=== PATIENT | male | born 1980 | race Two or more races ===

== ENCOUNTER 2020-06-23 21:47 | Inpatient (IN) | payer SELFPAY ==
[~2020-06-23] VITALS: Ht 167.6 cm; Wt 80.6 kg
[2020-06-23] MEDS ORDERED: CEFTRIAXONE PMX 1GM/50ML 50 ML ONE ×2 (22:46→23:57)
[2020-06-23] MEDS ORDERED: DOXYCYCLINE 100MG TABLET ONE (22:46)
[2020-06-23] MEDS ORDERED: ACETAMINOPHEN 500 MG TABLET ONE (22:46)
[2020-06-23 22:49] LABS: BASOPHILS % (AUTO) 0 % (0-1); EOSINOPHILS % (AUTO) 0 % (1-7); LYMPHOCYTES # (AUTO) 0.52 x10^3/uL (1-3.4); LYMPHOCYTES % (AUTO) 7 % (22-44); MD NO; MEAN CORPUSCULAR HEMOGLOBIN 30.4 pg (27.5-34.5); MEAN CORPUSCULAR HGB CONC 33.7 g/dL (33.2-36.2); MEAN CORPUSCULAR VOLUME 90.4 fL (81-97); MEAN PLATELET VOLUME 8.2 fL (7.4-10.4); MONOCYTES # (AUTO) 0.53 x10^3/uL (0.2-0.8); MONOCYTES % (AUTO) 7 % (2-9); NEUTROPHILS # (AUTO) 6.62 x10^3/uL (1.8-6.8); NEUTROPHILS % (AUTO) 86 % (42-75); PLATELET COUNT 202 x10^3/uL (130-400); RED CELL DISTRIBUTION WIDTH 12.5 % (9.4-14.8)
[2020-06-23 22:59] LABS: ALANINE AMINOTRANSFERASE 60 U/L (12-78); ALBUMIN 2.8 g/dL (3.4-5.0); ANION GAP 7 mmol/L (5-15); CHLORIDE 102 mmol/L (98-107); CREATININE 0.88 mg/dL (0.7-1.3)
[2020-06-23] MEDS ORDERED: CEFTRIAXONE PMX 1GM/50ML 50 ML IV ONE ×2 (23:00→23:45)
[2020-06-23] MEDS ORDERED: ACETAMINOPHEN 325 MG TABLET PO ONE (23:00)
[2020-06-23] MEDS ORDERED: ACETAMINOPHEN 500 MG TABLET PO ONE (23:00)
[2020-06-23] MEDS ORDERED: DOXYCYCLINE 100MG TABLET PO ONE (23:00)
[2020-06-23 23:06] LABS: D-DIMER (DIC) 0.54 ug/mlFEU (0.00-0.52); PROTIME 9.6 Seconds (9.6-11.5)
[2020-06-23 23:06] LABS: ALKALINE PHOSPHATASE 84 U/L (45-117); BILIRUBIN,TOTAL 0.5 mg/dL (0.2-1.0); TOTAL PROTEIN 7.6 g/dL (6.4-8.2)
[2020-06-23] MEDS ORDERED: methylPREDNISolone SOD SUCC 125 MG/2 ML ONE (23:16)
[2020-06-23] MEDS ORDERED: MELATONIN 5 MG TABLET PO PRN (23:30)
[2020-06-23] MEDS ORDERED: hydrALAzine 20 MG/ML, 1ML IVPush PRN (23:30)
[2020-06-23] MEDS ORDERED: ACETAMINOPHEN 325 MG TABLET PO PRN (23:30)
[2020-06-23] MEDS ORDERED: ONDANSETRON 2MG/ML, 2ML IVPush PRN (23:30)
[2020-06-23] MEDS ORDERED: methylPREDNISolone SOD SUCC 125 MG/2 ML IVPush ONE (23:30)
[2020-06-23] MEDS ORDERED: DOCUSATE 100 MG CAPSULE PO PRN (23:30)
[2020-06-23] MEDS: CEFTRIAXONE PMX 2GM/50ML 50 ML IV SCH (23:30)
[2020-06-23] MEDS ORDERED: BISACODYL 10 MG SUPP PR PRN (23:30)
[2020-06-23] MEDS ORDERED: POLYETHYLENE GLYCOL 17 GM PACKET PO PRN (23:30)
[2020-06-23] MEDS ORDERED: OXYcodone IR 5MG TABLET PO PRN (23:30)
[2020-06-23] MEDS ORDERED: PROMETHAZINE 25 MG/ML, 1ML IM PRN (23:30)
[2020-06-23] MEDS ORDERED: ENOXAPARIN 40 MG/0.4 ML SQ SCH (23:30)
[2020-06-23] MEDS ORDERED: ENOXAPARIN 40 MG/0.4 ML ONE (23:57)
--- NOTE | 2020-06-24 00:46 | NUR ---
PATIENTS OXYGEN LEVEL ON RA WAS 91-92%, PATIENT DENIED FEELING SOB, RN PLACED PATIENT ON 2L OF OXYGEN PATIENT IS NOW 96-97%
--- NOTE | 2020-06-24 00:56 | NUR ---
PATIENT MOVED TO A HOSPITAL BED, RESTING COMFORTABLY. PATIENT IS UTD ON PLAN
[2020-06-24 04:47] LABS: BASOPHILS % (AUTO) 0 % (0-1); EOSINOPHILS % (AUTO) 0 % (1-7); LYMPHOCYTES # (AUTO) 0.35 x10^3/uL (1-3.4); LYMPHOCYTES % (AUTO) 6 % (22-44); MD NO; MEAN CORPUSCULAR HEMOGLOBIN 30.6 pg (27.5-34.5); MEAN CORPUSCULAR HGB CONC 33.4 g/dL (33.2-36.2); MEAN CORPUSCULAR VOLUME 91.4 fL (81-97); MONOCYTES # (AUTO) 0.13 x10^3/uL (0.2-0.8); MONOCYTES % (AUTO) 2 % (2-9); NEUTROPHILS # (AUTO) 5.67 x10^3/uL (1.8-6.8); NEUTROPHILS % (AUTO) 92 % (42-75); PLATELET COUNT 209 x10^3/uL (130-400); RED BLOOD COUNT 4.91 x10^6/uL (4.38-5.82); RED CELL DISTRIBUTION WIDTH 12.1 % (9.4-14.8)
[2020-06-24 04:53] LABS: ANION GAP 8 mmol/L (5-15); CALCIUM 8.7 mg/dL (8.5-10.1); CHLORIDE 106 mmol/L (98-107); CREATININE 0.99 mg/dL (0.7-1.3)
--- NOTE | 2020-06-24 07:11 | NUR ---
REPORT FROM RICCI CONNER. PT ASLEEP IN BED. NAD NOTED AT THIS TIME. SATURATING WELL ON NC. AWAITING MEAL TRAY.
[2020-06-24] MEDS ORDERED: DEXAMETHASONE 4 MG/ML, 1ML ONE (07:23)
[2020-06-24] MEDS ORDERED: AZITHROMYCIN 500 MG TABLET ONE (07:23)
--- NOTE | 2020-06-24 07:27 | NUR ---
REQUEST FOR MEDS SENT TO PHARMACY.
[2020-06-24] MEDS ORDERED: FAMOTIDINE 20 MG TABLET ONE (07:58)
[2020-06-24] MEDS ORDERED: ASCORBIC ACID 500 MG TABLET PO SCH (08:00)
[2020-06-24] MEDS ORDERED: ASCORBIC ACID 250 MG TAB PO SCH (08:00)
[2020-06-24] MEDS: FAMOTIDINE 20 MG TABLET PO SCH ×2 (08:41→21:58)
[2020-06-24] MEDS: ZINC SULFATE 220 MG CAPSULE PO SCH ×2 (08:41→21:58)
[2020-06-24] MEDS: CHOLECALCIFEROL 5,000u TAB PO SCH (08:41)
[2020-06-24] MEDS: DEXAMETHASONE 4 MG/ML, 1ML IVPush SCH (08:42)
--- NOTE | 2020-06-24 08:54 | NUR ---
PT MEDICATED PER EMAR. NAD NOTED AT THIS TIME. LIGHTS LEFT ON BUT DIMMED PER PT REQUEST. HOB TO LEVEL OF COMFORT. MEAL TRAY AT BEDSIDE, REMAINS COVERED PER PT REQUEST. CALL LIGHT IN REACH. AWAITING ADMIT BED.
[2020-06-24] MEDS ORDERED: THIAMINE 100MG TABLET PO ONE (09:00)
[2020-06-24] MEDS ORDERED: AZITHROMYCIN 500 MG TABLET PO ONE (09:00)
--- NOTE | 2020-06-24 09:59 | NUR ---
PT RECLINED IN BED RESTING WITH EYES CLOSED. NAD NOTED AT THIS TIME. RESPIRATIONS EVEN AND UNLABORED ON NC.
--- NOTE | 2020-06-24 10:54 | NUR ---
PT RESTING IN BED, NAD NOTED AT THIS TIME. MOVES INDEPENDENTLY FOR COMFORT. NO NEEDS AT THIS TIME. AWAITING HOSPITAL ROOM ASSIGNMENT.
--- NOTE | 2020-06-24 11:24 | NUR ---
PT RESTING BACK IN BED, NAD NOTED AT THIS TIME. LUNCH TRAY ORDERED.
--- NOTE | 2020-06-24 13:06 | NUR ---
PT GIVEN LUNCH. ADDITIONAL PO FLUIDS PROVIDED. PT DENIES PAIN AT THIS TIME. RESPIRATIONS EVEN AND UNLABORED ON NC. AWAITING ADMISSION ROOM ASSIGNMENT.
--- NOTE | 2020-06-24 14:26 | NUR ---
report to RICCI Kamara.
--- NOTE | 2020-06-24 14:43 | NUR ---
break RN note: pt resting on hospital bed. resps even and unlabored. spo2 maintained >95% on 2L oxygen via NC. pt denies any needs at this time. awaiting med/surg bed assignment at this time.
--- NOTE | 2020-06-24 15:20 | NUR ---
CALL TO PHARMACY REGARDING TWO NEW MEDICATIONS. PER PHARMACIST, VIT C GIVEN ORALLY AND ONLY IV IF UNABLE TO TAKE PO. RN TO FOLLOW UP WITH ORDERING MD.
[2020-06-24] MEDS ORDERED: ENOXAPARIN 80 MG/0.8 ML ONE (15:31)
--- NOTE | 2020-06-24 15:37 | NUR ---
DISCUSSION WITH DR BAEZ REGARDING VIT C IV ADMINISTRATION. REQUEST SLIP SENT TO PHARMACY.
[2020-06-24] MEDS: ASCORBATE SODIUM 3,000 MG in SODIUM CHLORIDE 0.9% 250 ML IVPB SCH ×2 (15:59→21:58)
[2020-06-24] MEDS: ENOXAPARIN 80 MG/0.8 ML SQ SCH (16:00)
--- NOTE | 2020-06-24 18:15 | NUR ---
IV VITAMIN C COMPLETED.
--- NOTE | 2020-06-24 18:15 | NUR ---
FIRST ATTEMPT TO CALL FOR REPORT.
[2020-06-24 19:35] VITALS: BP 127/84
[2020-06-24 21:24] VITALS: BP 127/84
[2020-06-25] MEDS: CEFTRIAXONE PMX 2GM/50ML 50 ML IV SCH (00:06)
[2020-06-25 00:36] VITALS: BP 125/75
[2020-06-25] MEDS: ENOXAPARIN 80 MG/0.8 ML SQ SCH ×2 (03:24→15:32)
[2020-06-25] MEDS: ASCORBATE SODIUM 3,000 MG in SODIUM CHLORIDE 0.9% 250 ML IVPB SCH ×4 (03:24→21:49)
[2020-06-25] MEDS: FAMOTIDINE 20 MG TABLET PO SCH ×2 (08:11→20:28)
[2020-06-25] MEDS: DEXAMETHASONE 4 MG/ML, 1ML IVPush SCH (08:12)
[2020-06-25] MEDS: ZINC SULFATE 220 MG CAPSULE PO SCH ×2 (08:12→20:28)
[2020-06-25] MEDS: AZITHROMYCIN 250 MG TABLET PO SCH (08:12)
[2020-06-25] MEDS: CHOLECALCIFEROL 5,000u TAB PO SCH (08:12)
[2020-06-25 09:32] VITALS: BP 111/65
[2020-06-25 10:34] VITALS: BP 123/68
[2020-06-25 12:28] VITALS: BP 119/72
[2020-06-25 18:47] VITALS: BP 131/76
[2020-06-26] MEDS: CEFTRIAXONE PMX 2GM/50ML 50 ML IV SCH (00:07)
[2020-06-26 00:11] VITALS: BP 129/85
[2020-06-26] MEDS: ENOXAPARIN 80 MG/0.8 ML SQ SCH ×3 (03:18→22:55)
[2020-06-26] MEDS: ASCORBATE SODIUM 3,000 MG in SODIUM CHLORIDE 0.9% 250 ML IVPB SCH ×4 (04:23→22:47)
[2020-06-26 04:39] LABS: MEAN CORPUSCULAR HEMOGLOBIN 29.9 pg (27.5-34.5); MEAN CORPUSCULAR HGB CONC 32.3 g/dL (33.2-36.2); MEAN CORPUSCULAR VOLUME 92.6 fL (81-97); MEAN PLATELET VOLUME 7.9 fL (7.4-10.4); PLATELET COUNT 304 x10^3/uL (130-400); RED BLOOD COUNT 4.74 x10^6/uL (4.38-5.82); RED CELL DISTRIBUTION WIDTH 12.2 % (9.4-14.8)
[2020-06-26 04:43] LABS: ALBUMIN 2.3 g/dL (3.4-5.0); ANION GAP 8 mmol/L (5-15); CHLORIDE 112 mmol/L (98-107)
[2020-06-26 04:50] LABS: ALANINE AMINOTRANSFERASE 146 U/L (12-78); ALKALINE PHOSPHATASE 66 U/L (45-117); BILIRUBIN,TOTAL 0.3 mg/dL (0.2-1.0); CREATININE 0.74 mg/dL (0.7-1.3); TOTAL PROTEIN 6.5 g/dL (6.4-8.2)
[2020-06-26 05:44] LABS: BASOPHILS % (AUTO) 0 % (0-1); EOSINOPHILS % (AUTO) 0 % (1-7); LYMPHOCYTES # (AUTO) 0.87 x10^3/uL (1-3.4); LYMPHOCYTES % (AUTO) 9 % (22-44); MD SCAN; MONOCYTES # (AUTO) 0.84 x10^3/uL (0.2-0.8); MONOCYTES % (AUTO) 9 % (2-9); NEUTROPHILS # (AUTO) 7.56 x10^3/uL (1.8-6.8); NEUTROPHILS % (AUTO) 82 % (42-75)
[2020-06-26 07:50] VITALS: BP 124/89
[2020-06-26] MEDS: FAMOTIDINE 20 MG TABLET PO SCH ×2 (08:50→22:47)
[2020-06-26] MEDS: ZINC SULFATE 220 MG CAPSULE PO SCH ×2 (08:50→22:47)
[2020-06-26] MEDS: AZITHROMYCIN 250 MG TABLET PO SCH (08:50)
[2020-06-26] MEDS: CHOLECALCIFEROL 5,000u TAB PO SCH (08:50)
[2020-06-26] MEDS: DEXAMETHASONE 4 MG/ML, 1ML IVPush SCH (08:50)
[2020-06-26 14:36] VITALS: BP 114/74
[2020-06-26 18:56] VITALS: BP 137/88
[2020-06-27 00:30] VITALS: BP 135/89
[2020-06-27] MEDS: CEFTRIAXONE PMX 2GM/50ML 50 ML IV SCH (01:10)
[2020-06-27] MEDS: ASCORBATE SODIUM 3,000 MG in SODIUM CHLORIDE 0.9% 250 ML IVPB SCH ×2 (04:13→10:45)
[2020-06-27 06:13] VITALS: BP 135/93
[2020-06-27] MEDS: FAMOTIDINE 20 MG TABLET PO SCH (09:24)
[2020-06-27] MEDS: AZITHROMYCIN 250 MG TABLET PO SCH (09:24)
[2020-06-27] MEDS: CHOLECALCIFEROL 5,000u TAB PO SCH (09:24)
[2020-06-27] MEDS: DEXAMETHASONE 4 MG/ML, 1ML IVPush SCH (09:24)
[2020-06-27] MEDS: ZINC SULFATE 220 MG CAPSULE PO SCH (09:24)
[2020-06-27 13:18] VITALS: BP 117/76
== END 2020-06-27 13:52 | disposition home or self-care (01) | DRG 177 ==
LOC: ED 22:17 → EDIP 23:45 → 3N 06-24 19:03
PROVIDERS: ADMIT Internal Medicine; ATTEND Hospitalist
DX: U07.1 COVID-19 (principal); J12.89 Other viral pneumonia; J96.01 Acute respiratory failure with hypoxia; E87.1 Hypo-osmolality and hyponatremia; E86.1 Hypovolemia
CPT/HCPCS: 36415; 71045; 80048; 80053; 82728; 83605; 83615; 83735; 84100; 84145; 85025; 85049; 85379; 85384; 85610; 85730; 86140; 87040; 87635; 93005; G0378; J0696; J1100; J1650; J2930; J7050